=== PATIENT | male | born 1980 | race Caucasian/White ===

== ENCOUNTER 2022-09-16 18:10 | Emergency (ER) | payer MEDICAID ==
[~2022-09-16] VITALS: Ht 185.4 cm; Wt 77.1 kg
[2022-09-16] MEDS ORDERED: HYDROMORPHONE 1 MG/1 ML DISP.SYRIN ONE ×2 (18:30→18:32)
[2022-09-16] MEDS ORDERED: IV NORMAL SALINE 1000 ML BAG IV ONE (18:30)
[2022-09-16] MEDS ORDERED: KETOROLAC TROMETHAMINE 15 MG INJ IVP ONE (18:30)
[2022-09-16] MEDS ORDERED: HYDROMORPHONE 1 MG/1 ML DISP.SYRIN IV ONE ×3 (18:30→18:45)
[2022-09-16] MEDS ORDERED: ONDANSETRON 4 MG/2 ML VIAL IV ONE (18:30)
[2022-09-16] MEDS ORDERED: ONDANSETRON 4 MG/2 ML VIAL ONE (18:30)
[2022-09-16] MEDS ORDERED: KETOROLAC TROMETHAMINE 30 MG INJ ONE (18:30)
[2022-09-16 18:47] LABS: HEMATOCRIT 44.4 % (36.7-47.1); MEAN CORPUSCULAR HEMOGLOBIN 30.3 uug (23.8-33.4); MEAN CORPUSCULAR VOLUME 91.2 fL (73.0-96.2); PLATELET COUNT (AUTO) 324 K/uL (152-348)
[2022-09-16 18:55] LABS: CREATININE 1.2 mg/dL (0.6-1.3); POTASSIUM 3.2 mmol/L (3.5-5.1)
[2022-09-16 19:07] LABS: BILIRUBIN,DIRECT 0.1 mg/dL (0.0-0.2); BILIRUBIN,TOTAL 0.6 mg/dL (0.2-1.0); TOTAL PROTEIN, SERUM 7.4 g/dL (6.4-8.2)
[2022-09-16] MEDS ORDERED: PROCHLORPERAZINE EDISYLATE 10 MG/2 ML VIAL IV ONE (19:30)
[2022-09-16] MEDS ORDERED: POTASSIUM BICARBONATE/CIT AC 25 MEQ TABLET.EFF PO ONE (19:30)
[2022-09-16] MEDS ORDERED: IV NS 1000 ML 1,000 ML IV ONE (20:00)
[2022-09-16] MEDS ORDERED: PROCHLORPERAZINE EDISYLATE 10 MG/2 ML VIAL ONE (22:27)
[2022-09-16] MEDS ORDERED: POTASSIUM BICARBONATE/CIT AC 25 MEQ TABLET.EFF ONE (22:28)
[2022-09-16] MEDS ORDERED: PROC10TA29 PO (22:31)
[2022-09-16] MEDS ORDERED: OXYC-128 PO (22:31)
[2022-09-16 22:39] LABS: *BILIRUBIN,URIN 1+ (NEGATIVE); *BLOOD, URINE 2+ (NEGATIVE); *CLARITY,URINE CLOUDY (CLEAR); *COLOR,URINE YELLOW (YELLOW); *KETONES,URINE 2+ (NEGATIVE); *UROBILINOGEN,URINE 0.2 E.U./dl (NORMAL); LEUKOCYTE ESTERASE ,URINE NEGATIVE (NEGATIVE); NITRITE, URINE NEGATIVE (NEGATIVE); PH,URINE 5.5 (5.0-8.0); UGLUCOSE NEGATIVE (NEGATIVE)
[2022-09-16 23:22] VITALS: BP 118/80
--- NOTE | 2022-09-16 23:22 | NUR ---
Patient discharged to home in stable condition. Written and verbal after care instructions given. Patient verbalizes understanding of instructions. Stressed follow up or return to ER for worsening s/s.
[2022-09-17 08:03] LABS: BACTERIA,URINE FEW /HPF (NONE SEEN); CALCIUM OXALATE CRYSTALS,UR FEW /HPF (NONE SEEN); SQUAMOUS EPITHELIAL CELL,UR FEW /HPF (NONE SEEN); WBC,URINE 0-3 /HPF (0-3)
== END 2022-09-16 23:23 | disposition home or self-care (01) ==
LOC: ER 18:12
DX: N20.1 Calculus of ureter (principal); E87.6 Hypokalemia; D72.829 Elevated white blood cell count, unspecified; E86.0 Dehydration; Z87.442 Personal history of urinary calculi
CPT/HCPCS: 99284; 74176; 96374; 96375; 96361; 80076; 80048; 81001; 83690; 85025; 36415; J1885; J2405; J0780; J1170 ×2; J7040; A4663